=== PATIENT | female | born 1975 | race Caucasian/White ===

== ENCOUNTER 2018-10-20 05:50 | Day surgery (SDC) | payer BC ==
[~2018-10-20] VITALS: Ht 152.4 cm; Wt 69.9 kg
[2018-10-20] MEDS ORDERED: PROMETHAZINE HCL 25 MG/ML AMP IM PRN ×3 (07:30→10:30)
[2018-10-20] MEDS ORDERED: fentaNYL CITRATE/PF 100 MCG/2 ML AMP IVP PRN ×2 (08:00)
[2018-10-20] MEDS ORDERED: ONDANSETRON HCL 4 MG/2 ML VIAL IVP PRN ×2 (08:00→10:30)
[2018-10-20] MEDS ORDERED: IBUPROFEN 600 MG TABLET PO PRN (10:30)
[2018-10-20] MEDS ORDERED: OXYCODONE/ACETAMINOPHEN 5-325 TABLET PO PRN ×3 (10:30)
[2018-10-20] MEDS ORDERED: HYDROmorphone 2 MG TAB PO PRN (10:30)
[2018-10-20] MEDS ORDERED: SEVOFLURANE 15 MIN GAS INH ONE (10:40)
[2018-10-20] MEDS ORDERED: KETOROLAC TROMETHAMINE 30 MG VIAL ONE ×2 (10:40→13:24)
[2018-10-20] MEDS ORDERED: ROCURONIUM BROMIDE 10 MG/ML (ZEMURON) ONE (10:40)
[2018-10-20] MEDS ORDERED: ROPIVACAINE 0.2% (NAROPIN) PF SOLUTION 100 ML BOTTLE ONE (10:40)
[2018-10-20] MEDS ORDERED: GLYCOPYRROLATE 0.2 MG/ML VIAL ONE (10:40)
[2018-10-20] MEDS ORDERED: MIDAZOLAM HCL 5 MG/ML VIAL (VERSED) IV ONE (10:40)
[2018-10-20] MEDS ORDERED: LR 1,000 ML IV.SOLN IV ONE (10:40)
[2018-10-20] MEDS ORDERED: fentaNYL CITRATE/PF 100 MCG/2 ML AMP ONE (10:40)
[2018-10-20] MEDS ORDERED: BUPIVACAINE /PF 0.25% 30 ML VIAL INJ ONE (10:40)
[2018-10-20] MEDS ORDERED: ONDANSETRON HCL 4 MG/2 ML VIAL ONE (10:40)
[2018-10-20] MEDS ORDERED: NS 1000 ML IV.SOLN IV ONE (10:40)
[2018-10-20] MEDS ORDERED: PROMETHAZINE HCL 50 MG/ML AMP IM ONE (10:40)
[2018-10-20] MEDS ORDERED: PROPOFOL 200MG/ 20ML VIAL (DIPRIVAN) IV ONE (10:40)
[2018-10-20] MEDS ORDERED: LIDOCAINE 2%, 20 ML MDV ONE (10:40)
[2018-10-20] MEDS ORDERED: NS IRRIG SOLN 1000 ML IR ONE (10:40)
[2018-10-20] MEDS ORDERED: NEOSTIGMINE METHYLSULFATE 1 MG/ML, 10 ML VIAL ONE (10:40)
[2018-10-20] MEDS ORDERED: BUPIVACAINE /PF 0.5% 30 ML VIAL ONE (10:40)
[2018-10-20] MEDS ORDERED: CEFAZOLIN 2 GM IVPB PREMIX 50 ML IV ONE (10:40)
[2018-10-20] MEDS ORDERED: PHENYLEPHRINE HCL 10 MG/ML VIAL (NEOSYNEPHRINE) ONE (10:40)
[2018-10-20 11:56] VITALS: BP_SYST 101
[2018-10-20] MEDS ORDERED: KETOROLAC TROMETHAMINE 30 MG VIAL IVP SCH (12:00)
== END 2018-10-20 16:09 | disposition home or self-care (01) ==
LOC: SMU 05:50 → SDS 05:50 → MERGE 07:30 → SDS 16:09
PROVIDERS: ATTEND Obstetrics & Gynecology
DX: D25.2 Subserosal leiomyoma of uterus (principal); D25.1 Intramural leiomyoma of uterus; K21.9 Gastro-esophageal reflux disease without esophagitis; J30.9 Allergic rhinitis, unspecified; G43.119 Migraine with aura, intractable, without status migrainosus; N83.8 Other noninflammatory disorders of ovary, fallopian tube and broad ligament; E78.00 Pure hypercholesterolemia, unspecified; E05.90 Thyrotoxicosis, unspecified without thyrotoxic crisis or storm; H61.21 Impacted cerumen, right ear; H81.01 Meniere's disease, right ear; H57.10 Ocular pain, unspecified eye; Z68.30 Body mass index [BMI] 30.0-30.9, adult; Z79.899 Other long term (current) drug therapy; Z83.438 Family history of other disorder of lipoprotein metabolism and other lipidemia; Z90.49 Acquired absence of other specified parts of digestive tract; Z98.890 Other specified postprocedural states; Z83.3 Family history of diabetes mellitus
CPT/HCPCS: 36415; 58573; 86886; 86900; 86901; 88307; C1727; J0690; J1885; J2001; J2250; J2370; J2405; J2550 ×2; J2704; J2710; J2795; J3010; J3490 ×3; J7030; J7120; E0190

== ENCOUNTER 2018-11-28 22:40 | Emergency (ER) | payer BC ==
[~2018-11-28] VITALS: Ht 152.4 cm; Wt 61.2 kg
--- NOTE | 2018-11-28 22:45 | NUR ---
Patient to ER bed 4 to gown for evaluation. Side rails up. Report received from NIMISHA Davis.
--- NOTE | 2018-11-28 22:50 | NUR ---
Pt complains of lower abdominal pain that radiates to the back for the last month but worsened in the past three days. Pt states she had a partial hysterectomy in October and was prescribed ibuprofen. Pt denies fever, N/V. No other injuries/complaints per patient or noted.
[2018-11-28 23:00] VITALS: BP_SYST 132
[2018-11-28] MEDS ORDERED: ESOM20CA PO (23:11)
--- NOTE | 2018-11-28 23:15 | NUR ---
ER at bedside examining patient.
[2018-11-28] MEDS ORDERED: fentaNYL CITRATE/PF 100 MCG/2 ML AMP IVP ONE (23:30)
[2018-11-28] MEDS ORDERED: NACL 0.9% 1,000 ML IV ONE (23:30)
[2018-11-28] MEDS ORDERED: LORazepam 2 MG/ML VIAL (FOR ER USE) IVP ONE (23:30)
[2018-11-28 23:41] LABS: BASOPHILS # (AUTO) 0.1 K/uL (0.0-0.2); BASOPHILS % (AUTO) 1.1 % (0.0-2.0); EOSINOPHILS # (AUTO) 0.2 K/uL (0.0-0.4); EOSINOPHILS % (AUTO) 1.7 % (0.0-4.0); HEMATOCRIT 38.6 % (36-48); HEMOGLOBIN 12.1 g/dL (12.0-16.0); LYMPHOCYTES # (AUTO) 2.8 K/uL (1.0-5.5); LYMPHOCYTES % (AUTO) 27.6 % (20.5-51.5); MEAN CORPUSCULAR HEMOGLOBIN 25 pg (27-31); MEAN CORPUSCULAR HGB CONC 31 % (32-36); MEAN CORPUSCULAR VOLUME 80 fL (79.0-98.0); MONOCYTES # (AUTO) 0.7 K/uL (0.0-1.0); MONOCYTES % (AUTO) 6.6 % (1.7-9.3); NEUTROPHILS # (AUTO) 6.3 K/uL (1.8-7.7); PLATELET COUNT (AUTO) 382 K/uL (130-430); RED BLOOD CELL COUNT(AUTO) 4.84 MIL/uL (4.2-6.2); RED CELL DISTRIBUTION WIDTH 14.7 % (9.0-15.0); WHITE BLOOD COUNT (AUTO) 10.1 K/uL (4.8-10.8)
[2018-11-28 23:58] LABS: CALCIUM 9.3 mg/dL (8.4-11.0); CREATININE 0.8 mg/dL (0.55-1.30); POTASSIUM 3.8 mmol/L (3.5-5.1)
[2018-11-29 00:12] LABS: ALBUMIN 3.2 g/dL (3.4-4.8); TOTAL BILIRUBIN 0.2 mg/dL (0.0-1.0)
[2018-11-29] MEDS ORDERED: ONDANSETRON HCL 4 MG/2 ML VIAL IVP ONE (01:15)
[2018-11-29] MEDS ORDERED: MORPHINE 4 MG/ML INJ. SYRINGE IVP ONE (01:15)
--- NOTE | 2018-11-29 01:16 | NUR ---
Medication was given, pt tolerated well. No adverse reaction, will contine to monitor.
--- NOTE | 2018-11-29 02:13 | NUR ---
Patient given written and verbal discharge instructions and verbalizes understanding. ER MD discussed with patient the results and treatment provided. Patient in stable condition. ID arm band removed. IV catheter removed intact and dressing applied, no active bleeding. Rx of tramadol, robaxin, and motrin given. Patient educated on pain management and to follow up with PMD. Pain Scale 2/10 ER MD notified. Given tramadol, robaxin, and motrin for pain management at home. Opportunity for questions provided and answered. Medication side effect fact sheet provided.
[2018-11-29 02:17] VITALS: BP_SYST 132
== END 2018-11-29 02:17 | disposition home or self-care (01) ==
LOC: SED 22:40
DX: N83.202 Unspecified ovarian cyst, left side (principal); M62.838 Other muscle spasm; Z90.710 Acquired absence of both cervix and uterus; Z91.018 Allergy to other foods
CPT/HCPCS: 36415; 74176; 80053; 85025; 96361; 96374; 96375; 99284; J2060; J2270; J2405; J3010; J7030

== ENCOUNTER 2022-10-09 21:27 | Emergency (ER) | payer BC ==
[~2022-10-09] VITALS: Ht 152.4 cm; Wt 63.5 kg
[~2022-10-09 21:27] MED LIST: ESOM20CA PO
--- NOTE | 2022-10-09 22:15 | NUR ---
Patient triaged and placed in waiting room. VSS and patient appears in no acute distress at this time. Accompanied by [], awaiting available bed, and MD notified of need for MSE.
[2022-10-10] MEDS ORDERED: AMPICILLIN SODIUM/SULBACTAM NA 3 GM VIAL IM ONE (00:45)
[2022-10-10] MEDS ORDERED: NACL 0.9% 1,000 ML IV ONE (00:45)
[2022-10-10] MEDS ORDERED: KETOROLAC TROMETHAMINE 30 MG VIAL IVP ONE (00:45)
[2022-10-10 01:40] LABS: BASOPHILS # (AUTO) 0.1 K/uL (0.0-0.2); EOSINOPHILS # (AUTO) 0.3 K/uL (0.0-0.4); EOSINOPHILS % (AUTO) 3.1 % (0.0-4.0); HEMATOCRIT 41.2 % (36-48); HEMOGLOBIN 13.8 g/dL (12.0-16.0); LYMPHOCYTES # (AUTO) 2.9 K/uL (1.0-5.5); MEAN CORPUSCULAR HEMOGLOBIN 30 pg (27-31); MEAN CORPUSCULAR HGB CONC 34 % (32-36); MEAN CORPUSCULAR VOLUME 89 fL (79.0-98.0); MONOCYTES # (AUTO) 0.5 K/uL (0.0-1.0); MONOCYTES % (AUTO) 5.7 % (1.7-9.3); NEUTROPHILS # (AUTO) 5.5 K/uL (1.8-7.7); NEUTROPHILS % (AUTO) 59.2 % (40.0-70.0); PLATELET COUNT (AUTO) 339 K/uL (130-430); RED BLOOD CELL COUNT(AUTO) 4.63 MIL/uL (4.2-6.2); RED CELL DISTRIBUTION WIDTH 13.4 % (9.0-15.0); WHITE BLOOD COUNT (AUTO) 9.3 K/uL (4.8-10.8)
[2022-10-10 01:48] LABS: INR 0.9 (0.8-1.2); PROTHROMBIN TIME 9.6 SECS (9.5-12.5)
[2022-10-10] MEDS ORDERED: AUG875 PO (02:00)
[2022-10-10 02:11] LABS: CALCIUM 9.3 mg/dL (8.4-11.0); CREATININE 0.66 mg/dL (0.55-1.30)
[2022-10-10 02:17] LABS: ALBUMIN 3.8 g/dL (3.4-4.8); TOTAL BILIRUBIN 0.1 mg/dL (0.0-1.0)
[2022-10-10] MEDS ORDERED: IBUP-1970 PO (03:18)
[2022-10-10 03:23] VITALS: BP_SYST 124
== END 2022-10-10 03:24 | disposition home or self-care (01) ==
LOC: SED 21:27
DX: H70.001 Acute mastoiditis without complications, right ear (principal); H66.91 Otitis media, unspecified, right ear; I10 Essential (primary) hypertension; Z91.018 Allergy to other foods; Z79.899 Other long term (current) drug therapy; Z20.822 Contact with and (suspected) exposure to COVID-19
CPT/HCPCS: 99285; 70450; 87426; 80053; 85025; 85610; 85730; 87040; 36415; 76376; 83605; 96374; 96361; 96372; J0295; J1885; J7030

== ENCOUNTER 2023-01-26 21:39 | Emergency (ER) | payer BC ==
[~2023-01-26] VITALS: Ht 152.4 cm; Wt 70.3 kg
[2023-01-26 21:39] VITALS: BP_SYST 120
[~2023-01-26 21:39] MED LIST changes: +AUG875 PO; +IBUP-1970 PO
[2023-01-26 22:37] LABS: BASOPHILS % (AUTO) 0.8 % (0.0-2.0); EOSINOPHILS # (AUTO) 0.1 K/uL (0.0-0.4); EOSINOPHILS % (AUTO) 2.2 % (0.0-4.0); HEMATOCRIT 41.6 % (36-48); HEMOGLOBIN 14.2 g/dL (12.0-16.0); LYMPHOCYTES # (AUTO) 2.3 K/uL (1.0-5.5); LYMPHOCYTES % (AUTO) 43.1 % (20.5-51.5); MEAN CORPUSCULAR HEMOGLOBIN 30 pg (27-31); MEAN CORPUSCULAR HGB CONC 34 % (32-36); MEAN CORPUSCULAR VOLUME 88 fL (79.0-98.0); MONOCYTES # (AUTO) 0.5 K/uL (0.0-1.0); MONOCYTES % (AUTO) 8.4 % (1.7-9.3); NEUTROPHILS # (AUTO) 2.4 K/uL (1.8-7.7); NEUTROPHILS % (AUTO) 45.5 % (40.0-70.0); PLATELET COUNT (AUTO) 254 K/uL (130-430); RED BLOOD CELL COUNT(AUTO) 4.74 MIL/uL (4.2-6.2); RED CELL DISTRIBUTION WIDTH 14.1 % (9.0-15.0); WHITE BLOOD COUNT (AUTO) 5.4 K/uL (4.8-10.8)
[2023-01-26 22:56] LABS: ANION GAP 10 (5-15); CALCIUM 8.8 mg/dL (8.4-11.0); CHLORIDE 102 mmol/L (98-107); CREATININE 0.89 mg/dL (0.55-1.30); GLUCOSE 129 mg/dL (70-99); UREA NITROGEN, BLOOD 14 mg/dL (8-21)
[2023-01-26 23:03] LABS: ALANINE AMINOTRANSFERASE 73 U/L (12-78); ALBUMIN 3.4 g/dL (3.4-4.8); ASPARTATE AMINOTRANSFERASE 29 U/L (10-37); TOTAL BILIRUBIN 0.3 mg/dL (0.0-1.0)
[2023-01-26 23:05] LABS: GFR AFRICAN AMERICAN 87 mL/min (>90)
[2023-01-26] MEDS ORDERED: NAPR-688 PO (23:15)
[2023-01-26 23:29] VITALS: BP_SYST 125
== END 2023-01-26 23:29 | disposition home or self-care (01) ==
LOC: SED 21:39
DX: U07.1 COVID-19 (principal); R07.9 Chest pain, unspecified; R05.9 Cough, unspecified; R09.81 Nasal congestion; Z91.018 Allergy to other foods; Z79.899 Other long term (current) drug therapy
CPT/HCPCS: 36415; 71045; 80053; 84484; 85025; 93005; 99285

== ENCOUNTER 2023-07-08 11:35 | Emergency (ER) | payer BC ==
[~2023-07-08] VITALS: Ht 152.4 cm; Wt 75.7 kg
[~2023-07-08 11:35] MED LIST changes: +NAPR-688 PO
[2023-07-08 11:49] VITALS: BP_SYST 113; BP_SYST 95; PULSE 82; RESP 18; TEMP 98; O2SAT 100
[2023-07-08] MEDS ORDERED: MAG HYDROX/AL HYDROX/SIMETH 30 ML, DICYCLOMINE HCL 20 MG, LIDOCAINE VISCOUS 2% 15ML (PO... PO ONE ×3 (13:00)
[2023-07-08] MEDS ORDERED: MAG-AL HYDROX/SIMETH 30 ML UDC ONE (13:08)
[2023-07-08] MEDS ORDERED: DICYCLOMINE HCL 10 MG/5 ML SOLUTION ONE (13:08)
[2023-07-08 13:20] LABS: BILIRUBIN,URINE NEGATIVE (NEGATIVE); CLARITY/URINE CLEAR (CLEAR); COLOR,URINE YELLOW (YELLOW); GLUCOSE,URINE NEGATIVE (NEGATIVE); KETONES,URINE NEGATIVE (NEGATIVE); LEUKOCYTE ESTERASE ,URINE NEGATIVE (NEGATIVE); NITRITE, URINE NEGATIVE (NEGATIVE); PROTEIN URINE NEGATIVE (NEGATIVE); UROBILINOGEN,URINE 0.2 (0.2-1.0)
[2023-07-08 13:23] LABS: BASOPHILS # (AUTO) 0.1 K/uL (0.0-0.2); EOSINOPHILS # (AUTO) 0.2 K/uL (0.0-0.4); EOSINOPHILS % (AUTO) 2.3 % (0.0-4.0); HEMATOCRIT 42.5 % (36-48); HEMOGLOBIN 14.6 g/dL (12.0-16.0); LYMPHOCYTES % (AUTO) 25.1 % (20.5-51.5); MEAN CORPUSCULAR HEMOGLOBIN 30 pg (27-31); MEAN CORPUSCULAR HGB CONC 34 % (32-36); MEAN CORPUSCULAR VOLUME 88 fL (79.0-98.0); MONOCYTES # (AUTO) 0.5 K/uL (0.0-1.0); MONOCYTES % (AUTO) 5.9 % (1.7-9.3); NEUTROPHILS # (AUTO) 5.1 K/uL (1.8-7.7); NEUTROPHILS % (AUTO) 65.7 % (40.0-70.0); PLATELET COUNT (AUTO) 309 K/uL (130-430); RED BLOOD CELL COUNT(AUTO) 4.82 MIL/uL (4.2-6.2); RED CELL DISTRIBUTION WIDTH 13.7 % (9.0-15.0); WHITE BLOOD COUNT (AUTO) 7.8 K/uL (4.8-10.8)
[2023-07-08 13:59] LABS: BLOOD, URINE TRACE (NEGATIVE)
[2023-07-08 14:00] LABS: BACTERIA,URINE RARE /HPF (None Seen)
[2023-07-08 14:44] LABS: ALANINE AMINOTRANSFERASE 39 U/L (12-78); ALBUMIN 3.6 g/dL (3.4-4.8); ANION GAP 6 (5-15); ASPARTATE AMINOTRANSFERASE 21 U/L (10-37); CHLORIDE 103 mmol/L (98-107); CREATININE 0.63 mg/dL (0.55-1.30); GFR AFRICAN AMERICAN 129 mL/min (>90); GLUCOSE 93 mg/dL (74-106); TOTAL BILIRUBIN 0.3 mg/dL (0.0-1.0); UREA NITROGEN, BLOOD 14 mg/dL (8-21)
[2023-07-08 14:46] LABS: LIPASE 84 U/L (73-393)
[2023-07-08] MEDS ORDERED: CIPR500T5 PO (14:58)
[2023-07-08] MEDS ORDERED: SUCR1ORA4 PO (14:58)
[2023-07-08 15:33] VITALS: BP_SYST 113; PULSE 82; RESP 18; TEMP 98; O2SAT 100
== END 2023-07-08 15:33 | disposition home or self-care (01) ==
LOC: SED 11:35
DX: K29.70 Gastritis, unspecified, without bleeding (principal); R10.13 Epigastric pain; R07.89 Other chest pain; R19.7 Diarrhea, unspecified; K21.9 Gastro-esophageal reflux disease without esophagitis; Z91.018 Allergy to other foods; Z79.899 Other long term (current) drug therapy
CPT/HCPCS: 36415; 71045; 80053; 81000; 83690; 84484; 85025; 93005; 99285

== ENCOUNTER 2023-07-22 15:18 | Emergency (ER) | payer BC ==
[~2023-07-22] VITALS: Ht 152.4 cm; Wt 72.6 kg
[~2023-07-22 15:18] MED LIST changes: +CIPR500T5 PO; +SUCR1ORA4 PO
[2023-07-22 15:32] VITALS: BP_SYST 111; PULSE 94; RESP 18; TEMP 97.1; O2SAT 98
[2023-07-22 17:03] LABS: BASOPHILS % (AUTO) 0.2 % (0.0-2.0); EOSINOPHILS % (AUTO) 0.5 % (0.0-4.0); HEMATOCRIT 45.1 % (36-48); LYMPHOCYTES # (AUTO) 0.9 K/uL (1.0-5.5); LYMPHOCYTES % (AUTO) 8.3 % (20.5-51.5); MEAN CORPUSCULAR HEMOGLOBIN 30 pg (27-31); MEAN CORPUSCULAR HGB CONC 33 % (32-36); MEAN CORPUSCULAR VOLUME 89 fL (79.0-98.0); MONOCYTES # (AUTO) 0.3 K/uL (0.0-1.0); NEUTROPHILS # (AUTO) 9.1 K/uL (1.8-7.7); PLATELET COUNT (AUTO) 279 K/uL (130-430); RED BLOOD CELL COUNT(AUTO) 5.07 MIL/uL (4.2-6.2); RED CELL DISTRIBUTION WIDTH 13.1 % (9.0-15.0); WHITE BLOOD COUNT (AUTO) 10.4 K/uL (4.8-10.8)
[2023-07-22 17:24] LABS: CALCIUM 8.9 mg/dL (8.4-11.0); CREATININE 0.71 mg/dL (0.55-1.30); POTASSIUM 4.1 mmol/L (3.5-5.1)
[2023-07-22 17:28] LABS: ALBUMIN 3.8 g/dL (3.4-4.8); TOTAL BILIRUBIN 0.8 mg/dL (0.0-1.0)
[2023-07-22] MEDS ORDERED: ACETAMINOPHEN 500 MG TABLET PO ONE (19:00)
[2023-07-22 19:32] LABS: BASOPHILS % (AUTO) 0.2 % (0.0-2.0); EOSINOPHILS % (AUTO) 0.2 % (0.0-4.0); HEMATOCRIT 43.8 % (36-48); HEMOGLOBIN 14.7 g/dL (12.0-16.0); LYMPHOCYTES # (AUTO) 1.2 K/uL (1.0-5.5); MEAN CORPUSCULAR HEMOGLOBIN 30 pg (27-31); MEAN CORPUSCULAR HGB CONC 34 % (32-36); MEAN CORPUSCULAR VOLUME 89 fL (79.0-98.0); MONOCYTES # (AUTO) 0.3 K/uL (0.0-1.0); MONOCYTES % (AUTO) 3.2 % (1.7-9.3); NEUTROPHILS # (AUTO) 8.1 K/uL (1.8-7.7); NEUTROPHILS % (AUTO) 84.4 % (40.0-70.0); PLATELET COUNT (AUTO) 248 K/uL (130-430); RED BLOOD CELL COUNT(AUTO) 4.92 MIL/uL (4.2-6.2); RED CELL DISTRIBUTION WIDTH 13.6 % (9.0-15.0); WHITE BLOOD COUNT (AUTO) 9.6 K/uL (4.8-10.8)
[2023-07-22 19:44] LABS: CALCIUM 8.7 mg/dL (8.4-11.0); CREATININE 0.72 mg/dL (0.55-1.30); POTASSIUM 3.8 mmol/L (3.5-5.1)
[2023-07-22] MEDS ORDERED: ACETAMINOPHEN 325 MG TABLET PO ONE (19:45)
[2023-07-22 19:48] LABS: ALBUMIN 3.6 g/dL (3.4-4.8); TOTAL BILIRUBIN 0.8 mg/dL (0.0-1.0); TOTAL PROTEIN, SERUM 7.7 g/dL (6.4-8.3)
[2023-07-22 19:59] LABS: BILIRUBIN,URINE 1+ (NEGATIVE); BLOOD, URINE 2+ (NEGATIVE); CLARITY/URINE HAZY (CLEAR); COLOR,URINE YELLOW (YELLOW); GLUCOSE,URINE NEGATIVE (NEGATIVE); KETONES,URINE TRACE (NEGATIVE); PH,URINE 5.5 (5.0-8.0); PROTEIN URINE NEGATIVE (NEGATIVE)
[2023-07-22 20:00] LABS: LEUKOCYTE ESTERASE ,URINE NEGATIVE (NEGATIVE); NITRITE, URINE NEGATIVE (NEGATIVE); UROBILINOGEN,URINE 0.2 (0.2-1.0)
[2023-07-22 20:01] LABS: BACTERIA,URINE RARE /HPF (None Seen); MUCUS,URINE 2+ /LPF (None Seen); WBC,URINE NONE SEEN /HPF (0-3)
[2023-07-22 22:23] VITALS: BP_SYST 102; PULSE 76; RESP 20; TEMP 97.7; O2SAT 95
== END 2023-07-22 22:23 | disposition home or self-care (01) ==
LOC: SED 15:18
DX: K52.9 Noninfective gastroenteritis and colitis, unspecified (principal); R10.9 Unspecified abdominal pain; R11.2 Nausea with vomiting, unspecified; K21.9 Gastro-esophageal reflux disease without esophagitis; Z91.018 Allergy to other foods; Z79.899 Other long term (current) drug therapy
CPT/HCPCS: 99285; 74177; 81000; 83690; 85025; 36415; 76376; 80053; Q9967